=== PATIENT | female | born 1985 | race Caucasian/White ===

== ENCOUNTER 2025-03-15 12:42 | Emergency (ER) | payer BC ==
[~2025-03-15] VITALS: Ht 160 cm; Wt 94.8 kg
[2025-03-15 13:47] LABS: PLATELET COUNT (AUTO) 243 K/uL (150-450); RED BLOOD CELL COUNT(AUTO) 4.29 MIL/uL (4.0-5.2); RED CELL DISTRIBUTION WIDTH 12.9 % (11.5-15.0); WHITE BLOOD COUNT (AUTO) 7.2 K/uL (4.3-11.0)
[2025-03-15 13:54] LABS: CALCIUM, SERUM 9.0 mg/dL (8.5-10.1); CREATININE 0.8 mg/dL (0.6-1.3); SODIUM SERUM 135 mmol/L (136-145); UREA NITROGEN, BLOOD 16 mg/dL (7-18)
[2025-03-15 14:21] LABS: ASPARTATE AMINOTRANSFERASE 37 U/L (15-37); NT-PRO BNP 119 pg/mL (0-125); TOTAL PROTEIN, SERUM 7.2 g/dL (6.4-8.2)
[2025-03-15] MEDS ORDERED: FURO-145 PO (15:18)
[2025-03-15 15:26] VITALS: BP 133/65; TEMP 98.6; O2SAT 96
== END 2025-03-15 15:41 | disposition home or self-care (01) ==
LOC: ER 12:47
DX: R60.0 Localized edema (principal); F17.200 Nicotine dependence, unspecified, uncomplicated; R06.02 Shortness of breath; R10.20 Pelvic and perineal pain unspecified side; Z88.1 Allergy status to other antibiotic agents; Z88.2 Allergy status to sulfonamides; Z88.8 Allergy status to other drugs, medicaments and biological substances; Z87.442 Personal history of urinary calculi
CPT/HCPCS: 36415; 71045-TC; 80048-TC; 80076-TC; 83880; 84484-TC; 84702-TC; 85025-TC

== ENCOUNTER 2025-03-17 11:34 | Emergency (ER) | payer BC ==
[~2025-03-17] VITALS: Ht 160 cm; Wt 91.2 kg
[~2025-03-17 11:34] MED LIST: FURO-145 PO
[2025-03-17 12:05] VITALS: TEMP 97.9
[2025-03-17] MEDS ORDERED: ONDANSETRON HCL/PF 4 MG/2 ML VIAL ONE (12:17)
[2025-03-17 12:19] LABS: PLATELET COUNT (AUTO) 241 K/uL (150-450); RED BLOOD CELL COUNT(AUTO) 4.37 MIL/uL (4.0-5.2); RED CELL DISTRIBUTION WIDTH 12.8 % (11.5-15.0); WHITE BLOOD COUNT (AUTO) 7.4 K/uL (4.3-11.0)
[2025-03-17] MEDS: IV NS 0.9% 1,000 ML BAG IV ONE (12:20)
[2025-03-17] MEDS: ONDANSETRON HCL/PF 4 MG/2 ML VIAL IVP ONE (12:26)
[2025-03-17 12:42] LABS: ASPARTATE AMINOTRANSFERASE 29.0 U/L (15-37); CREATININE 0.7 mg/dL (0.6-1.3); SODIUM SERUM 137.0 mmol/L (136-145); TOTAL PROTEIN, SERUM 7.0 g/dL (6.4-8.2); UREA NITROGEN, BLOOD 15.0 mg/dL (7-18)
[2025-03-17 12:55] LABS: CALCIUM, SERUM 8.7 mg/dL (8.5-10.1)
[2025-03-17] MEDS ORDERED: KETOROLAC TROMETHAMINE 15 MG/ML VIAL ONE (13:14)
[2025-03-17] MEDS: KETOROLAC TROMETHAMINE 15 MG/ML VIAL IV ONE (13:19)
[2025-03-17] MEDS ORDERED: ONDA4TAB11 PO (13:21)
[2025-03-17 13:37] VITALS: BP 136/84; O2SAT 96
== END 2025-03-17 13:37 | disposition home or self-care (01) ==
LOC: ER 11:34
DX: B34.9 Viral infection, unspecified (principal); R53.1 Weakness; R53.81 Other malaise; R05.9 Cough, unspecified; R06.02 Shortness of breath; F17.200 Nicotine dependence, unspecified, uncomplicated; R10.20 Pelvic and perineal pain unspecified side; Z88.2 Allergy status to sulfonamides; Z79.899 Other long term (current) drug therapy; Z20.822 Contact with and (suspected) exposure to COVID-19
CPT/HCPCS: 99284; 96374; 96361; 96375; 87426; 87804 ×2; 85025; 80048; 83690; 80076; 36415; 84702; J1885; J2405; J7030